=== PATIENT | male | born 1940 | race Caucasian/White ===

== ENCOUNTER 2017-10-26 02:22 | Emergency (ER) | payer MEDICARE, BC ==
--- NOTE | 2017-10-26 02:37 | EDM.PDOC ---
ED HPI GENERAL MEDICAL PROBLEM - General Chief Complaint: Chest Pain Stated Complaint: ARM PAIN Time Seen by Provider: 10/26/17 02:27 - History of Present Illness INITIAL COMMENTS - FREE TEXT/NARRATIVE: 76-year-old male presents emergency room with chest pressure. Approximately 3 hours prior to arrival patient noted some left arm pain this started just above his elbow radiated up to the shoulder and across his chest almost to the right shoulder he describes discomfort more as a pressure. Patient has known atherosclerotic cardiovascular disease he's had 2 stents after extensive bypass surgery. Couple years ago the patient has had a defibrillator placed because of his failing LV dysfunction is not well understood he is currently getting chemotherapy for multiple myeloma that is working very good for the multiple myeloma. He's been on this therapy for a few years. The patient is not at home but he has not used this. This is the week for his chemotherapy he takes oral medications Wednesdays monthly. Left Chest Pain Score (Numeric/FACES): 6 - Related Data Allergies Allergy/AdvReac Type Severity Reaction Status Date / Time atorvastatin [From Lipitor] Allergy Hives Verified 10/26/17 02:34 furosemide [From Lasix] Allergy Other Verified 10/26/17 02:34 naproxen sodium [From Aleve] Allergy Dizziness Verified 10/26/17 02:34 Home Meds: Home Meds Allopurinol [Zyloprim] 200 mg PO DAILY 01/29/14 [History] Aspirin [Maya Chewable Aspirin] 81 mg PO DAILY 01/29/14 [History] Carvedilol 6.25 mg PO BID 01/29/14 [History] Dexamethasone 20 mg PO WEEKLY 01/29/14 [History] Sennosides/Docusate Sodium [Senna-Docusate Sodium] 50 mg PO BID 01/29/14 [ History] Cholecalciferol (Vitamin D3) [D-2000] 2,000 unit PO DAILY 03/26/16 [History] Clindamycin Phosphate [Cleocin T] 1 applic TP BID PRN 03/26/16 [History] Clopidogrel [Plavix] 75 mg PO DAILY 03/26/16 [History] Cyanocobalamin (Vitamin B-12) [Cyanocobalamin Injection] 1,000 mcg IM ASDIRECTED 03/26/16 [History] Dextran 70/Hypromellose [Artificial Tears] 2 each OP ASDIRECTED PRN 03/26/16 [ History] Ipratropium Fouke 0.5 ml DASIA TID PRN 03/26/16 [History] Ixazomib Citrate [Ninlaro] 3 mg PO WEEKLY 03/26/16 [History] Nitroglycerin [Nitrostat] 0.4 mg SL Q5M PRN 03/26/16 [History] Rosuvastatin [Crestor] 10 mg PO BEDTIME 03/26/16 [History] Acetaminophen [Non-Aspirin Extra Strength] 500 mg PO Q4H PRN 10/26/17 [History] Acetylcysteine [Nac] 600 mg PO ASDIRECTED 10/26/17 [History] Codeine/Promethazine HCl [Promethazine-Codeine Syrup] 0 ml PO ASDIRECTED PRN 03/05 [History] Phisohex 1 dose TOP ASDIRECTED PRN 10/26/17 [History] Torsemide [Demadex] 10 mg PO ASDIRECTED 10/26/17 [History] Triamcinolone Acetonide [Triamcinolone Acetonide 0.1% Crm] 1 applic TOP ASDIRECTED PRN 10/26/17 [History] Past Medical History HEENT History: Reports: Impaired Vision Cardiovascular History: Reports: Bypass, High Cholesterol, Stents Other Cardiovascular History: bypass 2001, stents 2015 Respiratory History: Reports: None Genitourinary History: Reports: Renal Disease Other Genitourinary History: stage 4 renal disease Other Musculoskeletal History: back surgery 2014 as result from chemo Neurological History: Reports: None Psychiatric History: Reports: None Endocrine/Metabolic History: Reports: None Other Oncologic History: multiple melanoma Dermatologic History: Reports: None - Infectious Disease History Infectious Disease History: Reports: Measles, Mumps - Past Surgical History HEENT Surgical History: Reports: Cataract Surgery Social & Family History - Family History Family Medical History: Noncontributory ED ROS GENERAL - Review of Systems Review Of Systems: See Below Constitutional: Reports: No Symptoms HEENT: Reports: No Symptoms Respiratory: Reports: No Symptoms Cardiovascular: Reports: Chest Pain Endocrine: Reports: No Symptoms GI/Abdominal: Reports: No Symptoms : Reports: No Symptoms Musculoskeletal: Reports: No Symptoms Skin: Reports: No Symptoms Neurological: Reports: No Symptoms ED EXAM, GENERAL - Physical Exam Exam: See Below Exam Limited By: No Limitations General Appearance: Alert, No Apparent Distress Head: Atraumatic, Normocephalic Neck: Normal Inspection, Supple, Non-Tender, Full Range of Motion, Other (No JVD ) Respiratory/Chest: No Respiratory Distress, Lungs Clear, Normal Breath Sounds Cardiovascular: Normal Peripheral Pulses, Regular Rate, Rhythm, No Edema, No Murmur GI/Abdominal: Normal Bowel Sounds, Soft, Non-Tender Extremities: Normal Inspection, No Pedal Edema EKG INTERPRETATION Rhythm: NSR P-Wave: Present (Borderline first-degree AV block) QRS: Wide ST-T: Other (Normal changes for left bundle branch) Comparison: NA - No Prior EKG Course - Vital Signs Last Recorded V/S: Last Vital Signs Temp 36.4 C 10/26/17 02:30 Pulse 86 10/26/17 04:05 Resp 16 10/26/17 04:05 BP 118/76 10/26/17 04:05 Pulse Ox 96 10/26/17 04:05 - Orders/Labs/Meds Orders: Active Orders 24 hr Category Date Time Status EKG Documentation Completion [RC] STAT Care 10/26/17 02:59 Active Chest 1V Frontal [CR] Stat Exams 10/26/17 02:58 Taken CBC W/O DIFF,HEMOGRAM [HEME] MOTH@0700 Lab 10/27/17 07:00 Ordered CBC W/O DIFF,HEMOGRAM [HEME] MOTH@0700 Lab 10/31/17 07:00 Ordered CBC W/O DIFF,HEMOGRAM [HEME] MOTH@0700 Lab 11/03/17 07:00 Ordered CBC W/O DIFF,HEMOGRAM [HEME] MOTH@0700 Lab 11/07/17 07:00 Ordered CBC W/O DIFF,HEMOGRAM [HEME] MOTH@0700 Lab 11/10/17 07:00 Ordered CBC W/O DIFF,HEMOGRAM [HEME] MOTH@0700 Lab 11/14/17 07:00 Ordered CKMB [CHEM] Stat Lab 10/26/17 04:01 Ordered Heparin Sodium/D5W [Heparin 25,000 Units in D5W 500 ML] Med 10/26/17 04:30 Ordered 25,000 units in 500 ml IV TITRATE Sodium Chloride 0.9% [Normal Saline] 1,000 ml Med 10/26/17 03:30 Active IV ASDIRECTED Medication Orders Sodium Chloride (Normal Saline) 1,000 mls @ 50 mls/hr IV ASDIRECTED RIGO Last Admin: 10/26/17 03:36 Dose: 50 mls/hr Heparin Sodium/Dextrose (Heparin 25,000 Units In D5w 500 Ml) 25,000 units in 500 mls @ 20 mls/hr IV TITRATE RIGO; Protocol Last Admin: 10/26/17 04:30 Dose: 1,000 units/hr, 20 mls/hr Labs: Laboratory Tests 10/26/17 10/26/17 10/26/17 Range/Units 03:07 03:07 03:07 WBC 6.27 (4.23-9.07) K/mm3 RBC 3.97 L (4.63-6.08) M/mm3 Hgb 13.8 (13.7-17.5) gm/L Hct 41.6 (40.1-51.0) % MCV 104.8 H (79.0-92.2) fl MCH 34.8 H (25.7-32.2) pg MCHC 33.2 (32.2-35.5) g/dl RDW Std Deviation 53.4 H (35.1-43.9) fL Plt Count 143 L (163-337) K/mm3 MPV 11.2 (9.4-12.3) fl Neutrophils % (Manual) 78 H (40-60) % Band Neutrophils % 2 (0-10) % Lymphocytes % (Manual) 19 L (20-40) % Atypical Lymphs % 0 % Monocytes % (Manual) 1 L (2-10) % Eosinophils % (Manual) 0 L (0.8-7.0) % Basophils % (Manual) 0 L (0.2-1.2) Platelet Estimate Adequate Poikilocytosis 1+ slight Anisocytosis 2+ moderate Macrocytosis 1+ slight Ovalocytes 1+ slight RBC Morph Comment Not Reportable PT 11.4 (9.5-12.1) SECONDS INR 1.05 APTT 26 (24-31) SECONDS Sodium 140 (136-145) mEq/L Potassium 4.4 (3.5-5.1) mEq/L Chloride 106 (98-107) mEq/L Carbon Dioxide 24 (21-32) mEq/L Anion Gap 14.4 (5-15) BUN 41 H (7-18) mg/dL Creatinine 2.8 H (0.7-1.3) mg/dL Est Cr Clr Drug Dosing 23.90 mL/min Estimated GFR (MDRD) 22 (>60) mL/min BUN/Creatinine Ratio 14.6 (14-18) Glucose 190 H (83-115) mg/dL Calcium 9.2 (8.5-10.1) mg/dL Total Bilirubin 0.7 (0.2-1.0) mg/dL AST 20 (15-37) U/L ALT 21 (16-63) U/L Alkaline Phosphatase 112 (46-116) U/L Troponin I 0.416 H* (0.00-0.056) ng/mL Total Protein 6.9 (6.4-8.2) g/dl Albumin 3.6 (3.4-5.0) g/dl Globulin 3.3 gm/dL Albumin/Globulin Ratio 1.1 (1-2) Meds: Medications Generic Name Dose Route Start Last Admin Trade Name Freq PRN Reason Stop Dose Admin Sodium Chloride 1,000 mls @ 50 mls/hr 10/26/17 03:30 10/26/17 03:36 Normal Saline IV 50 mls/hr ASDIRECTED RIGO Administration Heparin Sodium/Dextrose 25,000 units in 500 mls @ 20 mls/hr 10/26/17 04:30 04:30 Heparin 25,000 Units In D5w 500 Ml IV 1,000 units/hr TITRATE RIGO 20 mls/hr Administration Protocol 1,000 UNITS/HR Discontinued Medications Generic Name Dose Route Start Last Admin Trade Name Freq PRN Reason Stop Dose Admin Aspirin 324 mg 10/26/17 02:59 10/26/17 03:15 Aspirin PO 10/26/17 03:00 324 mg ONETIME ONE Administration Heparin Sodium (Porcine) 4,000 units 10/26/17 04:16 10/26/17 04:29 Heparin Sodium IVPUSH 10/26/17 04:17 4,000 units .BOLUS ONE Administration Nitroglycerin 0.4 mg 10/26/17 02:59 10/26/17 03:36 Nitrostat SL 0.4 mg Q5M PRN Administration Chest Pain Nitroglycerin 1 gm 10/26/17 03:58 10/26/17 04:03 Nitro-Bid 2% TOP 10/26/17 03:59 1 gm ONETIME ONE Administration - Re-Assessments/Exams Free Text/Narrative Re-Assessment/Exam: 10/26/17 03:49 Pain is down to a 2 and is substernal no longer involves the arm. 10/26/17 04:34 Patient's troponin came back elevated at 0.16 the significance of this given his renal insufficiency is unknown at [facility] earlier this year in April he had a troponin of 0.9. I've ordered a CK-MB however his chest pain may not have been going on for this to go myoglobin is a second study. The case was discussed with the hospitalist at [facility] in [place] who is in agreement with taking the patient will start him on heparin he's been started on a topical Nitropaste. 10/26/17 04:38 Patient is pain-free on nitro paste Departure - Departure Time of Disposition: 04:11 Disposition: DC/Tfer to Acute Hospital 02 Clinical Impression: Acute coronary syndrome - Discharge Information Referrals: PCP,Not In Area [Primary Care Provider] - Forms: ED Department Discharge - My Orders Last 24 Hours: My Active Orders 10/26/17 02:58 Chest 1V Frontal [CR] Stat 10/26/17 02:59 EKG Documentation Completion [RC] STAT 10/26/17 03:30 Sodium Chloride 0.9% [Normal Saline] 1,000 ml IV ASDIRECTED 10/26/17 04:01 CKMB [CHEM] Stat 10/26/17 04:30 Heparin Sodium/D5W [Heparin 25,000 Units in D5W 500 ML] 25,000 units in 500 ml IV TITRATE 10/27/17 07:00 CBC W/O DIFF,HEMOGRAM [HEME] MOTH@0710/31/17 07:00 CBC W/O DIFF,HEMOGRAM [HEME] MOTH@00 11/03/17 07:00 CBC W/O DIFF,HEMOGRAM [HEME] MOTH@69911/07/17 07:00 CBC W/O DIFF,HEMOGRAM [HEME] MOTH@00 11/10/17 07:00 CBC W/O DIFF,HEMOGRAM [HEME] MOTH@0700 11/14/17 07:00 CBC W/O DIFF,HEMOGRAM [HEME] MOTH@0700 - Assessment/Plan Last 24 Hours: My Active Orders 10/26/17 02:58 Chest 1V Frontal [CR] Stat 10/26/17 02:59 EKG Documentation Completion [RC] STAT 10/26/17 03:30 Sodium Chloride 0.9% [Normal Saline] 1,000 ml IV ASDIRECTED 10/26/17 04:01 CKMB [CHEM] Stat 10/26/17 04:30 Heparin Sodium/D5W [Heparin 25,000 Units in D5W 500 ML] 25,000 units in 500 ml IV TITRATE 10/27/17 07:00 CBC W/O DIFF,HEMOGRAM [HEME] MOTH@69910/31/17 07:00 CBC W/O DIFF,HEMOGRAM [HEME] MOTH@69911/03/17 07:00 CBC W/O DIFF,HEMOGRAM [HEME] MOTH@69911/07/17 07:00 CBC W/O DIFF,HEMOGRAM [HEME] MOTH@69911/10/17 07:00 CBC W/O DIFF,HEMOGRAM [HEME] MOTH@69911/14/17 07:00 CBC W/O DIFF,HEMOGRAM [HEME] MOTH@699
[2017-10-26] MEDS ORDERED: Aspirin 81 MG Tab.Chew PO ONE (02:59)
[2017-10-26] MEDS: Nitroglycerin 0.4 MG Tab.SL SL PRN ×3 (03:17→03:36)
[2017-10-26] MEDS ORDERED: Sodium Chloride 0.9% 1,000 ML IV SCH (03:30)
[2017-10-26] MEDS ORDERED: Nitroglycerin 2% Oint 1 GM UD Packet TOP ONE (03:58)
[2017-10-26] MEDS ORDERED: Heparin Sodium 5,000 Units/ML Vial IVPUSH ONE (04:16)
[2017-10-26] MEDS ORDERED: Heparin Sodium/D5W 25,000 UNITS/500 ML BAG IV SCH (04:30)
[2017-10-26 04:45] VITALS: BP 120/80
--- NOTE | 2017-10-26 09:43 | CR ---
Portable view of the chest was obtained. Comparison: Prior chest x-ray of 01/29/14. Heart size and mediastinum are within normal limits for portable technique. Sternotomy is noted. AICD is present. Lungs are clear with no acute parenchymal change. Bony structures are osteopenic. Mild scoliosis is noted within the spine. Impression: 1. Incidental findings. Nothing acute is identified on portable chest x-ray. Diagnostic code #2
== END 2017-10-26 05:00 ==
LOC: JD.ED 02:22
DX: I24.9 Acute ischemic heart disease, unspecified (principal); E78.00 Pure hypercholesterolemia, unspecified; Z88.6 Allergy status to analgesic agent; Z88.8 Allergy status to other drugs, medicaments and biological substances; Z79.82 Long term (current) use of aspirin; Z79.899 Other long term (current) drug therapy
CPT/HCPCS: 36415; 71045; 80053; 82553; 84484; 85007; 85027; 85610; 85730; 93005; 96361; 96365; 99285; A9270; J1644; J7040